=== PATIENT | male | born 1950 | race Caucasian/White ===

== ENCOUNTER 2021-08-04 09:57 | Emergency (ER) | payer MEDICARE, MEDICAID, SELFPAY ==
[2021-08-04] VITALS (15 sets, daily range): BP systolic 146–206; BP diastolic 73–99; PULSE 61–75; RESP 28–37; TEMP 36.3; O2SAT 93–100; BMI 23.6
--- NOTE | 2021-08-04 10:19 | DI.RAD.S_ITS ---
PROCEDURE: XR CHEST 1V INDICATIONS: shortness of breath TECHNIQUE: One view of the chest was acquired. COMPARISON: None. FINDINGS: Surgical changes and devices: None. Lungs and pleura: Mild pulmonary vascular congestion is seen. There is suggestion of pulmonary edema. Increased airspace opacities in bilateral infrahilar region are seen suggestive of bilateral infiltrate/atelectasis. Trace left pleural effusion is also present. No gross pneumothorax. Mediastinum: Mediastinal contours appear normal. Heart size is mildly enlarged Bones and chest wall: No suspicious bony lesions. Overlying soft tissues appear unremarkable. IMPRESSION: Congestive changes and pulmonary edema. Suggestion of small to moderate bilateral lower lobe infiltrate/atelectasis. Trace left pleural effusion. No gross pneumothorax. Dictated by: Michael Villanueva M.D. on 08/04/2021 at 10:38 Approved by: Michael iVllanueva M.D. on 08/04/2021 at 10:39
[2021-08-04 10:44] LABS: COVID19 -Nasal RAPID Negative (Negative)
[2021-08-04 10:47] LABS: Creatine Kinase 134 U/L (55-170)
[2021-08-04 11:00] LABS: Troponin I < 0.012 ng/mL (0.01-0.034)
[2021-08-04 11:03] LABS: CKMB % Relative Index 1.4 % (1.5-5.0); Creatine Kinase MB 1.83 ng/mL (<2.37)
[2021-08-04 11:13] LABS: Add Manual Diff / Slide Review NO; Basophils Absolute Auto 0 /uL (0-100); Basophils Percent Auto 0.2 % (0-2); Eosinophils Absolute Auto 0 /uL (0-450); Eosinophils Percent Auto 0.2 % (2-4); Hematocrit 32.3 % (41-53); Hemoglobin 10.9 g/dL (13.5-17.5); Lymphocytes Absolute Auto 500 /uL (1100-4500); Lymphocytes Percent Auto 4.9 % (25-40); Mean Corpuscular HGB Conc 33.7 % (30-36); Mean Corpuscular Hemoglobin 36.8 PG (26-34); Mean Corpuscular Volume 109.4 fL (80-100); Monocytes Absolute Auto 500 /uL (0-900); Monocytes Percent Auto 4.5 % (3-14); Neutrophils Absolute Auto 9900 /uL (1500-7000); Neutrophils Percent Auto 90.2 % (50-75); Platelet Count 162 X10^3/uL (150-400); Red Blood Cell Count 2.95 X10^6/uL (4.5-5.9); Red Cell Distribution Width 18.2 % (11.6-14.8)
--- NOTE | 2021-08-04 11:14 | ED_ITS ---
HPI - SOB/Dyspnea General Chief Complaint: Shortness of Breath/Dyspnea Stated Complaint: sob, h/o CHF and COPD Time Seen by Provider: 08/04/21 10:24 Source: patient and family Mode of arrival: Family Vehicle Limitations: no limitations History of Present Illness HPI Narrative: This is a 71-year-old male comes emergency department with complaint of increasing shortness of breath over the last several days who presents with from the local inpatient rehab facility. He has had sudden onset of swelling of his lower extremities, orthopnea and a sensation of shortness of breath overnight. He states that about 2 weeks ago he was sent to [facility] in [facility] for AFib, 2 sided heart failure and had what is described as probably a cardiac catheterization and cardioversion while he was there. He was discharged home on Eliquis. He since then has been in rehab locally and had several his medications stopped recently and had worsening shortness of breath. He is on 2-3 L here in the emergency department. He states he would occasionally use oxygen at rehab but was never on oxygen normally or at night time. He denies fevers or chills. He denies any chest pain or pressure. He has shortness of breath even with sitting still, orthopnea prefers to be straight up, he noted he has increased swelling which had improved since his hospitalization recently. He denies any nausea or vomiting. He did have quite a bit of diarrhea when he was in the hospital he was on some medications he states it was like coffee water. He is unsure what that medicine was. He states he has had prior appendectomy but no other cardiac surgeries or history. Patient states he does have a 40 pack year of smoking unsure if he has any COPD but he does not normally use inhalers. Occasional alcohol but nothing r egularly. No illicit. He lives on [facility]. His primary care is Dr. Zaldivar. Related Data Previous Rx's Medication Instructions Recorded furosemide 40 mg tablet (Lasix) 40 mg PO DAILY #5 tab 08/04/21 Allergies Allergy/AdvReac Type Severity Reaction Status Date / Time No Known Drug Allergies Allergy Verified 08/04/21 11:43 Review of Systems Review of Systems ROS Unobtainable: All systems reviewed & are unremarkable except as noted in HPI and below Patient History Social History Smoking Status: Former smoker Smoking Status: Former smoker tobacco type: cigarettes alcohol intake frequency: holidays/special occasions only Substance Use Type: does not use Exam Narrative Exam Narrative: GEN: Elderly appearing male, alert and oriented x 3, patient appears to be in [id number] distress. HEENT: Atraumatic, pupils are equal round reactive to light, extraocular moveme nts are intact, nares are clear, nasal cannula in place. HEART: Regular rate and rhythm without murmur, clicks, rubs. Positive for JVD. Bilateral 2+ lower extremity edema. LUNGS:Lungs clear to auscultation, no wheezes, rales, crackles, chest moves symmetrically, slightly decreased at bases. Mild tachypnea. No accessory muscle use. Some pursed lip breathing. Patient speaks in 4 issue word sen tences. Patient sitting straight up in bed and for 1st even leaning forward a little. ABD:bowel sounds normal, soft, non-tender, no guarding, rebound, rigidity, no masses noted, no hepatosplenomegaly :No CVA tenderness MSCL: Non-tender, no muscle atrophy, muscles strength 5/5 upper and lower extr emities, full range of motion, normal gait NEURO:CN 2-12 intact, sensation normal SKIN: Initial Vital Signs Initial Vital Signs: Vital Signs Pulse Rate 68 08/04/21 10:15 Respiratory Rate 35 H 08/04/21 10:15 Blood Pressure 198/84 H 08/04/21 10:15 Pulse Oximetry 96 08/04/21 10:15 Course Orders Ordered: ED Orders 08/04/21 10:50 Complete Blood Count AUTO DIFF Stat Comprehensive Metabolic Panel Stat Lactate (Lactic Acid) Stat Discontinued Medications Furosemide (Furosemide 40 Mg/4 Ml Vial) 40 mg IV NOW ONE Stop: 08/04/21 11:16 Last Admin: 08/04/21 11:44 Dose: 40 mg Documented by: KARL Reevaluation(s) Reevaluation #1: Recheck after Lasix and re-evaluation patient is feeling improved. O2 is 99% plan to wean down oxygen. Discussed with patient suspect CHF exacerbation. He feels comfortable returning to facility is starting to feel much better after diuresing. He has had 300 mL out so far. Time: 13:15 Consultations Consultation #1: Spoke with the provider at [facility] [employer] that takes care of Mr. Arthur. Ciro takes, feels comfortable with the patient returning discussed that he may still require oxygen today he is diuresing and is feeling improved we have been weaning down. He states patient has been on oral vanco for possible C diff had negative DNA but positive toxin or vice versa. That they had recently stopped his diuretic that he has known chronic diastolic heart failure. That he was not swollen or having any changes significantly is normally ambulatory without pulse ox. This coincides with patient's reported history as well. They are comfortable with patient returning with prescription for Lasix for several days and re-evaluating if this needs to be continued. Time: 13:42 Vital Signs Vital signs: Vital Signs - 8 hr 08/04/21 12:00 08/04/21 12:01 08/04/21 12:30 Pulse Rate 65 65 68 Respiratory Rate 32 H 33 H 36 H Blood Pressure 206/92 H Pulse Oximetry 97 97 98 08/04/21 12:59 08/04/21 13:00 08/04/21 13:01 Pulse Rate 61 62 62 Respiratory Rate 29 H 34 H 32 H Blood Pressure 146/92 H 162/73 H Pulse Oximetry 100 93 94 08/04/21 13:30 08/04/21 14:00 Pulse Rate 65 63 Respiratory Rate 28 H 31 H Blood Pressure 188/85 H 166/80 H Pulse Oximetry 98 96 MDM - SOB/Dyspnea Lab Data Result diagrams: 08/04/21 10:50 08/04/21 10:50 Labs: Lab Results 08/04/21 08/04/21 08/04/21 Range/Units 10:24 10:25 10:50 WBC 11.0 (4.5-11.0) X10^3/uL RBC 2.95 L (4.5-5.9) X10^6/uL Hgb 10.9 L (13.5-17.5) g/dL Hct 32.3 L (41-53) % MCV 109.4 H (80-100) fL MCH 36.8 H (26-34) PG MCHC 33.7 (30-36) % RDW 18.2 H (11.6-14.8) % Plt Count 162 (150-400) X10^3/uL Neut % (Auto) 90.2 H (50-75) % Lymph % (Auto) 4.9 L (25-40) % [place] % (Auto) 4.5 (3-14) % Eos % (Auto) 0.2 L (2-4) % Baso % (Auto) 0.2 (0-2) % Neut # (Auto) 9900 H (6003-6730) /uL Lymph # (Auto) 500 L (6805-3605) /uL [place] # (Auto) 500 (0-900) /uL Eos # (Auto) 0 (0-450) /uL Baso # (Auto) 0 (0-100) /uL Sodium (137-145) mmol/L Potassium (3.4-5.1) mmol/L Chloride (98-107) mmol/L Carbon Dioxide (22-32) mmol/L BUN (9-20) mg/dL Creatinine (0.66-1.25) mg/dL Estimated GFR (>60) mL/min BUN/Creatinine Ratio (6-22) Glucose (80-110) mg/dL Lactate (0.7-2.1) mmol/L Calcium (8.4-10.2) mg/dL Total Bilirubin (0.2-1.3) mg/dL AST (17-59) IU/L ALT (<50) IU/L Alkaline Phosphatase (38-126) U/L Total Creatine Kinase 134 (55-170) U/L CK-MB (CK-2) 1.83 (<2.37) ng/mL CK-MB (CK-2) Rel Index 1.4 L (1.5-5.0) % Troponin I < 0.012 (0.01-0.034) ng/mL NT-Pro-B Natriuret Pep 94036 H (<125) pg/mL Total Protein (6.3-8.2) g/dL Albumin (3.5-5.0) g/dL Globulin (1.7-4.1) g/dL Albumin/Globulin Ratio (1.0-2.8) SARS-CoV-2 (PCR) Negative (Negative) 08/04/21 08/04/21 Range/Units 10:50 10:50 WBC (4.5-11.0) X10^3/uL RBC (4.5-5.9) X10^6/uL Hgb (13.5-17.5) g/dL Hct (41-53) % MCV (80-100) fL MCH (26-34) PG MCHC (30-36) % RDW (11.6-14.8) % Plt Count (150-400) X10^3/uL Neut % (Auto) (50-75) % Lymph % (Auto) (25-40) % [place] % (Auto) (3-14) % Eos % (Auto) (2-4) % Baso % (Auto) (0-2) % Neut # (Auto) (3658-6534) /uL Lymph # (Auto) (0985-2885) /uL [place] # (Auto) (0-900) /uL Eos # (Auto) (0-450) /uL Baso # (Auto) (0-100) /uL Sodium 146 H (137-145) mmol/L Potassium 4.5 (3.4-5.1) mmol/L Chloride 113 H (98-107) mmol/L Carbon Dioxide 26 (22-32) mmol/L BUN 16 (9-20) mg/dL Creatinine 0.94 (0.66-1.25) mg/dL Estimated GFR > 60 (>60) mL/min BUN/Creatinine Ratio 17.0 (6-22) Glucose 148 H (80-110) mg/dL Lactate 1.9 (0.7-2.1) mmol/L Calcium 9.0 (8.4-10.2) mg/dL Total Bilirubin 0.6 (0.2-1.3) mg/dL AST 52 (17-59) IU/L ALT 103 H (<50) IU/L Alkaline Phosphatase 115 (38-126) U/L Total Creatine Kinase (55-170) U/L CK-MB (CK-2) (<2.37) ng/mL CK-MB (CK-2) Rel Index (1.5-5.0) % Troponin I (0.01-0.034) ng/mL NT-Pro-B Natriuret Pep (<125) pg/mL Total Protein 6.9 (6.3-8.2) g/dL Albumin 4.1 (3.5-5.0) g/dL Globulin 2.8 (1.7-4.1) g/dL Albumin/Globulin Ratio 1.5 (1.0-2.8) SARS-CoV-2 (PCR) (Negative) Imaging Data Chest x-ray: Radiologist's Impression: [address] [address] XRay Report Signed Patient: Reji Arthur MR#: [id number] : 1950 Acct:[id number] Age/Sex: 71 / M Date of Service: 08/04/21 Loc: ED Accession Number: [id number] ?? Procedure: XR chest 1V Ordering Provider: Charleen Flaherty D.O. PROCEDURE:? XR CHEST 1V ? INDICATIONS:? shortness of breath ? TECHNIQUE:? One view of the chest was acquired.? ? COMPARISON:? None. ? FINDINGS:? ? Surgical changes and devices:? None.? ? Lungs and pleura:? Mild pulmonary vascular congestion is seen.? There is suggestion of pulmonary edema.? Increased airspace opacities in bilateral infrahilar region are seen suggestive of bilateral infiltrate/atelectasis.? Trace left pleural effusion is also present.? No gross pneumothorax. ? Mediastinum:? Mediastinal contours appear normal.? Heart size is mildly enlarged ? Bones and chest wall:? No suspicious bony lesions.? Overlying soft tissues appear unremarkable.? ? IMPRESSION:? Congestive changes and pulmonary edema.? Suggestion of small to moderate bilateral lower lobe infiltrate/atelectasis.? Trace left pleural effusion.? No gross pneumothorax. ? ? Dictated by: Michael Villanueva M.D. on 08/04/2021 at 10:38 ? ? Approved by: Michael Villanueva M.D. on 08/04/2021 at 10:39?? ECG Data Attestation: I personally reviewed and interpreted this ECG as follows: Prior ECG tracings: available for review Interpretation: Sinus rhythm premature atrial complexes. Left ventricular hypertrophy. Prolonged QT. Q-wave in lead 3 RSR in 2 and AVF. No priors available for comparison. MDM Narrative Medical decision making narrative: This is a 71-year-old male comes emergency department with what appears to be CHF exacerbation. Patient has known COPD but on exam his consistent much more with fluid overload. He was recently hospitalized least within the last weeks for CHF and has ?likely a cardioversion he is anticoagulated. Had some medications. He is unsure but these may have been his diuretics. Patient was given Lasix, renal function is normal, [place] [address]. X-ray is consistent with CHF. Patient was requiring new 2 L nasal cannula. Patient is feeling much improved on repeat check. He is at [facility], he is not normally on oxygen but after talking to his provider they feel comfortable with him returning can continue to wean down his oxygen which we have been doing continue Lasix and will re-evaluate when he has stopped this most recent dose. Discharge Plan Departure Patient Disposition: Home Clinical Impression: CHF exacerbation Instructions: DI for Heart Failure Activity Restrictions/Additional Instructions: Follow-up with your caregiver at your facility. I did speak with them today. Continue regular medications as prescribed Continue Lasix for the next 5 days. You may need this medication on a daily basis in the future. Prescription included in discharge paperwork. Please return for worsening shortness of breath, increasing swelling of extremities, lightheadedness or passing out, increasing oxygen requirements, persistent vomiting or other new or concerning symptoms. Prescriptions: New furosemide [Lasix] 40 mg tablet 40 mg PO DAILY Qty: 5 0RF Referrals: Daron Ulloa MD [Primary Care Provider] -
[2021-08-04 11:15] LABS: Lactate (Lactic Acid) 1.9 mmol/L (0.7-2.1)
[2021-08-04 11:16] LABS: Alanine Aminotransferase 103 IU/L (<50); Albumin 4.1 g/dL (3.5-5.0); Albumin Globulin Ratio 1.5 (1.0-2.8); Alkaline Phosphatase 115 U/L (38-126); Aspartate Aminotransferase 52 IU/L (17-59); Bilirubin Total 0.6 mg/dL (0.2-1.3); Blood Urea Nitrogen 16 mg/dL (9-20); Carbon Dioxide 26 mmol/L (22-32); Chloride 113 mmol/L (98-107); Estimated Glomerular Filt Rate > 60 mL/min (>60); Globulin 2.8 g/dL (1.7-4.1); Glucose 148 mg/dL (80-110); HEMOLYSIS < 15 (0-50); Potassium 4.5 mmol/L (3.4-5.1); Sodium 146 mmol/L (137-145); Total Protein 6.9 g/dL (6.3-8.2)
[2021-08-04] MEDS: FUROSEMIDE 40 MG/4 ML VIAL IV (11:44)
[2021-08-04 12:16] LABS: NT-proBNP (BNP-Adult 18+) 13000 pg/mL (<125)
== END 2021-08-04 15:40 | disposition home or self-care (01) ==
PROVIDERS: Emergency Provider Emergency Medicine; PCP Orthopaedic Surgery
DX: I50.9 Heart failure, unspecified (principal); R94.31 Abnormal electrocardiogram [ECG] [EKG]; Z20.822 Contact with and (suspected) exposure to COVID-19
CPT/HCPCS: 36415; 71045; 80053; 82550; 82553; 83605; 83880; 84484; 85025; 87635; 93005; 96374; 99285; C9803; J1940

== ENCOUNTER → 2022-09-25 07:10 | Outpatient (ROUT) | payer MEDICARE, MEDICAID, SELFPAY ==
[2022-09-25 08:31] LABS: Alanine Aminotransferase 12 IU/L (<50); Albumin 3.7 g/dL (3.5-5.0); Albumin Globulin Ratio 1.4 (1.0-2.8); Alkaline Phosphatase 117 U/L (38-126); Aspartate Aminotransferase 16 IU/L (17-59); BUN Creatinine Ratio 18.2 (6-22); Bilirubin Total 0.4 mg/dL (0.2-1.3); Blood Urea Nitrogen 18 mg/dL (9-20); Calcium 8.9 mg/dL (8.4-10.2); Carbon Dioxide 27 mmol/L (22-32); Chloride 107 mmol/L (98-107); Cholesterol 155 mg/dL (140-199); Estimated Glomerular Filt Rate > 60 mL/min (>60); Globulin 2.7 g/dL (1.7-4.1); Glucose 89 mg/dL (80-110); HDL Cholesterol 49 mg/dL (40-60); HEMOLYSIS < 15 (0-50); LDL Cholesterol Calculated 89 mg/dL (<100); Potassium 4.4 mmol/L (3.4-5.1); Sodium 140 mmol/L (137-145); Total Protein 6.4 g/dL (6.3-8.2); Triglycerides 85 mg/dL (35-150)
== END ==
PROVIDERS: PCP Orthopaedic Surgery; Visit Provider Nurse Practitioner
DX: I50.22 Chronic systolic (congestive) heart failure (principal); I25.10 Atherosclerotic heart disease of native coronary artery without angina pectoris; E78.5 Hyperlipidemia, unspecified
CPT/HCPCS: 36415; 80053; 80061

== ENCOUNTER 2022-10-11 14:15 | Outpatient (RCR) | payer MEDICARE, MEDICAID, SELFPAY | END 2022-10-11 16:15 | LOC: CAR 14:15 | PROVIDERS: PCP Orthopaedic Surgery; Referring Provider Internal Medicine Cardiovascular Disease; Visit Provider Internal Medicine Cardiovascular Disease | DX: I21.4 Non-ST elevation (NSTEMI) myocardial infarction (principal); I25.10 Atherosclerotic heart disease of native coronary artery without angina pectoris; I50.21 Acute systolic (congestive) heart failure; I50.22 Chronic systolic (congestive) heart failure; I34.0 Nonrheumatic mitral (valve) insufficiency; I42.9 Cardiomyopathy, unspecified; I48.3 Typical atrial flutter | CPT/HCPCS: 93798 ==

== ENCOUNTER → 2023-10-01 07:19 | Outpatient (ROUT) | payer MEDICARE, MEDICAID, SELFPAY ==
[2023-10-01 07:29] LABS: Hematocrit 38.3 % (41-53); Hemoglobin 13.3 g/dL (13.5-17.5); Mean Corpuscular HGB Conc 34.6 % (30-36); Mean Corpuscular Volume 98.1 fL (80-100); Platelet Count 106 X10^3/uL (150-400); Red Cell Distribution Width 14.6 % (11.6-14.8); White Blood Cell Count 4.9 X10^3/uL (4.5-11.0)
[2023-10-01 07:47] LABS: Alanine Aminotransferase 9 IU/L (<50); Albumin 3.7 g/dL (3.5-5.0); Albumin Globulin Ratio 1.4 (1.0-2.8); Alkaline Phosphatase 95 U/L (38-126); Aspartate Aminotransferase 16 IU/L (17-59); BUN Creatinine Ratio 20.4 (6-22); Bilirubin Total 0.4 mg/dL (0.2-1.3); Blood Urea Nitrogen 21 mg/dL (9-20); Calcium 8.5 mg/dL (8.4-10.2); Carbon Dioxide 24 mmol/L (22-32); Chloride 109 mmol/L (98-107); Cholesterol 134 mg/dL (140-199); Estimated Glomerular Filt Rate > 60 mL/min (>60); Globulin 2.7 g/dL (1.7-4.1); Glucose 91 mg/dL (80-110); HDL Cholesterol 47 mg/dL (40-60); HEMOLYSIS < 15 (0-50); LDL Cholesterol Calculated 68 mg/dL (<100); Potassium 4.8 mmol/L (3.4-5.1); Sodium 139 mmol/L (137-145); Total Protein 6.4 g/dL (6.3-8.2); Triglycerides 93 mg/dL (35-150)
[2023-10-01 08:53] LABS: Folate > 20.0 ng/mL (2.76-20.0); Vitamin B12 357 pg/mL (239-931)
== END ==
PROVIDERS: PCP Orthopaedic Surgery; Visit Provider Internal Medicine
DX: E78.00 Pure hypercholesterolemia, unspecified (principal); D64.9 Anemia, unspecified
CPT/HCPCS: 36415; 80053; 80061; 82607; 82746; 85027

== ENCOUNTER → 2024-03-03 15:21 | Outpatient (CLI) | payer MEDICAID, MEDICARE, SELFPAY ==
--- NOTE | 2024-03-03 | DI.RAD.S_ITS ---
PROCEDURE: XR RIBS BI 3V INDICATIONS: RIB PAIN TECHNIQUE: 2 views of the ribs were acquired. COMPARISON: None. FINDINGS: Surgical changes and devices: None. Bones and chest wall: No fractures or dislocations. No suspicious bony lesions. Overlying soft tissues appear unremarkable. Lungs and pleura: The visualized lung appears clear. No pleural effusions or pneumothorax are visible. IMPRESSION: No displaced rib fracture. Dictated by: Lisandro Iglesias M.D. on 03/03/2024 at 16:14 Approved by: Lisandro Iglesias M.D. on 03/03/2024 at 16:15
== END ==
PROVIDERS: PCP Orthopaedic Surgery; Referring Provider Internal Medicine; Visit Provider Internal Medicine
DX: R07.82 Intercostal pain (principal)
CPT/HCPCS: 71110

== ENCOUNTER 2024-03-03 16:02 | Emergency (ER) | payer MEDICAID, MEDICARE, SELFPAY ==
[2024-03-03] VITALS (16 sets, daily range): BP systolic 102–149; BP diastolic 53–67; PULSE 57–64; RESP 23–25; O2SAT 92–99; BMI 24.6
--- NOTE | 2024-03-03 16:07 | DI.RAD.S_ITS ---
PROCEDURE: XR CHEST 1V INDICATIONS: syncope TECHNIQUE: One view of the chest was acquired. COMPARISON: [facility], [facility], XR CHEST 1V, 08/04/2021, 10:23. FINDINGS: Surgical changes and devices: Coronary stents. Lungs and pleura: Lungs are clear. No pleural effusions or pneumothorax. Mediastinum: Mediastinal contours appear normal. Heart size is normal. Bones and chest wall: No suspicious bony lesions. Overlying soft tissues appear unremarkable. IMPRESSION: No acute cardiopulmonary abnormality is seen. Dictated by: Lisandro Iglesias M.D. on 03/03/2024 at 16:39 Approved by: Lisandro Iglesias M.D. on 03/03/2024 at 16:40
[2024-03-03] MEDS: SODIUM CHLORIDE 0.9% 1,000 ML 500 ML IV (16:20)
--- NOTE | 2024-03-03 16:20 | ED.NEUROSD ---
HPI - Neuro Symptoms/Deficit General Chief Complaint: Syncope Stated Complaint: syncope/Hypotensive Time Seen by Provider: 03/03/24 16:07 Source: patient and other Mode of arrival: other History of Present Illness HPI Narrative: 73-year-old male history of atrial fibrillation on Eliquis, congestive heart failure who was being seen through GI for a chest x-ray for chest that has been present for the past 2-3 weeks. Patient was standing for a period of time had to have several episodes attempt with holding his breath and developed lightheadedness and near syncopal episode. Patient was seen by myself over MDI he was diaphoretic, was not conversant but states he could hear people talking. He has since improved. States he has had chest pain for several weeks that has been almost constant. Nothing seems to make it better or worse except when he coughs or sneezes. Patient denies any syncope other than today recently. He has had syncopal episodes in the past and describes getting orthostatic when he gets up quickly. Denies any fevers or chills, no cold cough or congestion. No shortness of breath. He denies any nausea or vomiting today. No loss of bowel or bladder control. No seizure-like activity witnessed in the department. Patient had any new swelling in extremities. He notes he does take anticoagulants daily believes it is Eliquis. He is unsure of all of his home medications but states he takes a lot. Patient does not have any known drug allergies. Does use tobacco daily, occasional alcohol, no recreational drugs. On Anticoagulants: Yes Related Data Previous Rx's Medication Instructions Recorded furosemide 40 mg tablet (Lasix) 40 mg PO DAILY #5 tabs 08/04/21 tramadol 50 mg tablet 50 mg PO Q6H PRN pain #20 tabs 03/03/24 Allergies Allergy/AdvReac Type Severity Reaction Status Date / Time No Known Drug Allergies Allergy Verified 08/04/21 11:43 Review of Systems Review of Systems ROS Unobtainable: All systems reviewed & are unremarkable except as noted in HPI and below Hematologic/Lymphatic On Anticoagulants: Yes Patient History Social History Smoking Status: Current every day smoker Smoking Status: Current every day smoker tobacco type: pipe alcohol intake frequency: holidays/special occasions only Substance Use Type: does not use Exam Narrative Exam Narrative: GENERAL: Alert and oriented x three, initially diaphoretic and pale. Patient's color has significantly improved after being laid flat and moved to room. Diaphoresis has resolved. HEENT: Head normocephalic, atraumatic, EOMI, pupils reactive, face symmetric, moist mucous membranes NECK: Supple, full range of motion CARDIOVASCULAR: Bradycardic but regular rate and rhythm without murmurs, rubs or gallops. RESPIRATORY: Breath sounds equal bilaterally, no wheezes rales or rhonchi. ABDOMEN: Soft, nontender. Normoactive bowel sounds all 4 quadrants. No guarding or rebound, rigidity, no mass, no pulsatile mass or bruit : No CVA tenderness EXTREMITIES: Normal range of motion, no clubbing or edema. Neurovascularly intact NEUROLOGICAL: Cranial nerves II through XII grossly intact. Moving all extremities SKIN: Warm, dry, no petechiae, no rashes or lesions. Initial Vital Signs Initial Vital Signs: Vital Signs Pulse Rate 57 L 03/03/24 16:02 Respiratory Rate 24 03/03/24 16:02 Blood Pressure 149/67 H 03/03/24 16:02 Pulse Oximetry 97 03/03/24 16:02 Oxygen Delivery Method Room Air 03/03/24 16:02 Course Orders Ordered: ED Orders 03/03/24 16:07 XR chest 1V Stat EKG-12 Lead Stat 03/03/24 16:16 Complete Blood Count AUTO DIFF Stat Comprehensive Metabolic Panel Stat Lipase Stat NT-proBNP (BNP-Adult 18+) Stat Troponin & CK Cardiac Panel Stat 03/03/24 18:14 CT angio chest PE protocol Stat 03/03/24 18:20 EKG-12 Lead Stat Discontinued Medications Aspirin (Aspirin 81 Mg Chew Tab) 324 mg PO NOW ONE Stop: 03/03/24 16:08 Last Admin: 03/03/24 16:17 Dose: Not Given Documented By: JILL Sodium Chloride (Normal Saline 0.9%) 1,000 mls @ 500 mls/hr IV BOLUS ONE Stop: 03/03/24 18:06 Last Infusion: 03/03/24 18:27 Dose: Infused Documented By: Admin: 03/03/24 16:20 Dose: 500 mls/hr Documented By: JILL Tramadol HCl (Tramadol 50 Mg Tablet) 50 mg PO NOW ONE Stop: 03/03/24 19:14 Last Admin: 03/03/24 19:18 Dose: 50 mg Vital Signs Vital signs: Vital Signs - 8 hr 03/03/24 16:02 03/03/24 16:21 03/03/24 16:22 Pulse Rate 57 L 59 L Respiratory Rate 24 Blood Pressure 149/67 H Pulse Oximetry 97 92 96 Oxygen Delivery Method Room Air 03/03/24 16:22 03/03/24 16:30 03/03/24 16:30 Pulse Rate 60 Respiratory Rate Blood Pressure 105/53 L 102/55 L Pulse Oximetry 94 Oxygen Delivery Method 03/03/24 16:40 03/03/24 16:40 03/03/24 16:50 Pulse Rate 59 L 59 L Respiratory Rate 25 H 23 Blood Pressure 109/56 L Pulse Oximetry 94 93 Oxygen Delivery Method 03/03/24 16:50 03/03/24 17:00 03/03/24 17:00 Pulse Rate 64 Respiratory Rate 23 Blood Pressure 106/54 L 119/56 L Pulse Oximetry 97 Oxygen Delivery Method 03/03/24 17:10 03/03/24 17:10 03/03/24 17:20 Pulse Rate 62 61 Respiratory Rate Blood Pressure 117/56 L Pulse Oximetry 96 95 Oxygen Delivery Method 03/03/24 17:20 03/03/24 17:30 03/03/24 17:30 Pulse Rate 61 Respiratory Rate Blood Pressure 113/54 L 111/54 L Pulse Oximetry 96 Oxygen Delivery Method 03/03/24 17:40 03/03/24 17:40 03/03/24 17:50 Pulse Rate 61 62 Respiratory Rate 23 24 Blood Pressure 118/57 L Pulse Oximetry 96 96 Oxygen Delivery Method Room Air 03/03/24 17:50 03/03/24 18:00 03/03/24 18:00 Pulse Rate 62 Respiratory Rate 25 H Blood Pressure 119/58 L 119/58 L Pulse Oximetry 96 Oxygen Delivery Method 03/03/24 18:10 03/03/24 18:10 03/03/24 18:30 Pulse Rate 63 62 Respiratory Rate 23 Blood Pressure 137/62 Pulse Oximetry 97 99 Oxygen Delivery Method Room Air 03/03/24 19:00 Pulse Rate 62 Respiratory Rate 23 Blood Pressure 147/67 H Pulse Oximetry 97 Oxygen Delivery Method MDM - Neuro Symptoms/Deficit Lab Data 03/03/24 16:16 03/03/24 16:16 Labs: Lab Results 03/03/24 Range/Units 16:16 WBC 6.6 (4.5-11.0) X10^3/uL RBC 3.66 L (4.5-5.9) X10^6/uL Hgb 11.7 L (13.5-17.5) g/dL Hct 35.6 L (41-53) % MCV 97.2 (80-100) fL MCH 32.0 (26-34) PG MCHC 33.0 (30-36) % RDW 15.4 H (11.6-14.8) % Plt Count 130 L (150-400) X10^3/uL Neut % (Auto) 69.2 (50-75) % Lymph % (Auto) 20.7 L (25-40) % Meigs % (Auto) 8.1 (3-14) % Eos % (Auto) 1.5 L (2-4) % Baso % (Auto) 0.5 (0-2) % Neut # (Auto) 4500 (1424-9695) /uL Lymph # (Auto) 1400 (5960-0403) /uL [place] # (Auto) 500 (0-900) /uL Eos # (Auto) 100 (0-450) /uL Baso # (Auto) 0 (0-100) /uL Sodium 136 L (137-145) mmol/L Potassium 3.8 (3.4-5.1) mmol/L Chloride 106 (98-107) mmol/L Carbon Dioxide 21 L (22-32) mmol/L BUN 22 H (9-20) mg/dL Creatinine 0.96 (0.66-1.25) mg/dL Estimated GFR > 60 (>60) mL/min BUN/Creatinine Ratio 22.9 H (6-22) Glucose 138 H (80-110) mg/dL Calcium 8.7 (8.4-10.2) mg/dL Total Bilirubin 0.5 (0.2-1.3) mg/dL AST 21 (17-59) IU/L ALT 13 (<50) IU/L Alkaline Phosphatase 481 H (38-126) U/L Total Creatine Kinase 53 L (55-170) U/L Troponin I 0.015 (0.01-0.034) ng/mL NT-Pro-B Natriuret Pep 1390 H (<125) pg/mL Total Protein 7.1 (6.3-8.2) g/dL Albumin 4.0 (3.5-5.0) g/dL Globulin 3.1 (1.7-4.1) g/dL Albumin/Globulin Ratio 1.3 (1.0-2.8) Lipase 22 L (23-300) U/L Point of Care Testing Glucose POC 133 Imaging Data Chest x-ray: Radiologist's Impression: Close Chest X-Ray (Signed) Lisandro Iglesias - 03/03/24 Ribs X-Ray (Signed) Lisandro Iglesias - 03/03/24 Chest X-Ray (Signed) Michael Villanueva - 08/04/21 Launch?Image [address] [address] XRay Report Signed Patient: Reji Arthur MR#: [id number] : 1950 Acct:[id number] Age/Sex: 73 / M Date of Service: 03/03/24 Loc: ED Accession Number: [id number] Procedure: XR chest 1V Ordering Provider: Charleen Flaherty D.O. PROCEDURE: XR CHEST 1V INDICATIONS: syncope TECHNIQUE: One view of the chest was acquired. COMPARISON: [facility] , XR CHEST 1V, 08/04/2021, 10:23. FINDINGS: Surgical changes and devices: Coronary stents. Lungs and pleura: Lungs are clear. No pleural effusions or pneumothorax. Mediastinum: Mediastinal contours appear normal. Heart size is normal. Bones and chest wall: No suspicious bony lesions. Overlying soft tissues appear unremarkable. IMPRESSION: No acute cardiopulmonary abnormality is seen. Dictated by: Lisandro Iglesias M.D. on 03/03/2024 at 16:39 Approved by: Lisandro Iglesias M.D. on 03/03/2024 at 16:40 ECG Data Attestation: I personally reviewed and interpreted this ECG as follows: Prior ECG tracings: available for review Interpretation: Sinus rhythm rate of 66 OR 140 QRS of 92 QTC of 486, no acute ST elevation or depression. EKG 2. Shows sinus bradycardia rate of 59, OR 144 QRS of 94 QTC of 461, this was repeated as the initial EKG did not load. Appears similar to prior 03/03/24 and 08/05/23. EKG 3. Sinus rhythm rate of 61 OR 152 QRS of 90 2q see of 455. No dynamic changes appreciated on EKG. [facility] Narrative Medical decision making narrative: Labs show white count of 6.6 hemoglobin 11.7 was 13 in September. Platelets are 130 improved from September as well. Chemistries shows sodium 136 potassium 3.8 chloride of 106, CO2 of 21, if you have meet, creatinine 0.96, glucose of 138, AST ALT are fine, alk-phos is 41, CK is 53. Troponin 0.015, BNP is 1390. Lipase is 22. Chest x-ray shows no acute change EKG showed normal sinus rhythm that is sounds like a good plan patient has some mild ST changes in lateral leads but this is on priors including from February 2024 in July 2021. Patient but looks much improved even after just lying down. He received fluids continues to feel improved. He has had chronic chest pain for the past several weeks no other exacerbating factors that he is describing. With troponin of 0.015 with persistent constant chest pain do not think he has having a angina or myocardial infarction. Patient describes pain for several weeks but is worse with cough, he did have a near syncopal episode was little bit hypotensive so we will obtain CT angio of the chest. This shows shows no PE, no right heart strain, some dependent atelectasis but no focal consolidation emphysematous changes. Patient has diffusely scattered mixed lytic and sclerotic osseous lesions throughout the skeleton suspicious for osseous metastases. No suspicious pulmonary nodes or mediastinal lymphadenopathy. Low attenuating lesions in the bilateral adrenal gland measuring 3.2 cm and 1.6 on the left. Patient has ambulated without issue here in the department. He was feeling much improved. Discussed these findings with the patient. He states this fits as his pain feels like it is more in his ribs and not deep inside his chest. Reviewed findings are concerning for malignancy and metastatic lesions but no clear source is found on his imaging. Plan for patient to follow up outpatient to evaluate for primary source. Patient does have a primary care but is interested in having someone more local so we will give contact. He notes he has been having some difficulty with sleeping secondary to the pain and discomfort so we will do a short course of pain medication. All questions answered. Discharge Plan Departure Patient Disposition: Home Clinical Impression: Syncope, Metastasis to bone Activity Restrictions/Additional Instructions: Your workup today shows multiple sclerotic and lytic lesions throughout the skeleton and ribs are consistent with metastases. No clear source is found but you do need to follow up with primary care to evaluate for malignancy or cancer. These spots can cause pain, you can take acetaminophen up to a 1000 mg every 6 hours as needed for pain and/or ibuprofen. If inadequate for pain you can take tramadol 1-2 tablets every 6 hours as needed. This medication can make you sleepy do not drive, perform hazardous activities or make any major decisions while taking it. This medication will make you constipated please take a stool softener once to twice daily until stools are soft and regular. Prescription sent to [facility] in [place]. Please return for fevers, recurrent syncopal episodes or lightheadedness, worsening pain, new shortness of breath, persistent vomiting, coughing up blood, new swelling in extremities other new or concerning changes. Prescriptions: New tramadol 50 mg tablet 50 mg PO Q6H PRN (Reason: pain) Qty: 20 0RF No Action furosemide [Lasix] 40 mg tablet 40 mg PO DAILY Qty: 5 0RF Referrals: Daron Ulloa MD [Primary Care Provider] - Stand Alone Forms: Patient Portal/API/Survey
[2024-03-03 16:25] LABS: Add Manual Diff / Slide Review NO; Basophils Absolute Auto 0 /uL (0-100); Basophils Percent Auto 0.5 % (0-2); Eosinophils Absolute Auto 100 /uL (0-450); Eosinophils Percent Auto 1.5 % (2-4); Hematocrit 35.6 % (41-53); Hemoglobin 11.7 g/dL (13.5-17.5); Lymphocytes Absolute Auto 1400 /uL (1100-4500); Lymphocytes Percent Auto 20.7 % (25-40); Mean Corpuscular Volume 97.2 fL (80-100); Monocytes Absolute Auto 500 /uL (0-900); Monocytes Percent Auto 8.1 % (3-14); Neutrophils Absolute Auto 4500 /uL (1500-7000); Neutrophils Percent Auto 69.2 % (50-75); Platelet Count 130 X10^3/uL (150-400); Red Blood Cell Count 3.66 X10^6/uL (4.5-5.9); Red Cell Distribution Width 15.4 % (11.6-14.8); White Blood Cell Count 6.6 X10^3/uL (4.5-11.0)
[2024-03-03 16:35] LABS: Alanine Aminotransferase 13 IU/L (<50); Albumin Globulin Ratio 1.3 (1.0-2.8); Alkaline Phosphatase 481 U/L (38-126); Aspartate Aminotransferase 21 IU/L (17-59); BUN Creatinine Ratio 22.9 (6-22); Bilirubin Total 0.5 mg/dL (0.2-1.3); Blood Urea Nitrogen 22 mg/dL (9-20); Calcium 8.7 mg/dL (8.4-10.2); Carbon Dioxide 21 mmol/L (22-32); Chloride 106 mmol/L (98-107); Creatine Kinase 53 U/L (55-170); Estimated Glomerular Filt Rate > 60 mL/min (>60); Globulin 3.1 g/dL (1.7-4.1); Glucose 138 mg/dL (80-110); HEMOLYSIS < 15 (0-50); Lipase 22 U/L (23-300); Potassium 3.8 mmol/L (3.4-5.1); Sodium 136 mmol/L (137-145); Total Protein 7.1 g/dL (6.3-8.2)
[2024-03-03 16:47] LABS: NT-proBNP (BNP-Adult 18+) 1390 pg/mL (<125); Troponin I 0.015 ng/mL (0.01-0.034)
--- NOTE | 2024-03-03 16:56 | EKG_ITS ---
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
--- NOTE | 2024-03-03 18:11 | EKG_ITS ---
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
--- NOTE | 2024-03-03 18:14 | DI.CT.S_ITS ---
PROCEDURE: CT ANGIO CHEST PE PROTOCOL INDICATIONS: chest pain x 3 weeks, syncope TECHNIQUE: After the administration of intravenous contrast, 2 mm thick sections acquired from the pulmonary apices to the posterior costophrenic angles. 3-dimensional maximum intensity projection (MIP) coronal and sagittal reformats were then acquired through the thorax. For radiation dose reduction, the following was used: automated exposure control, adjustment of mA and/or kV according to patient size. COMPARISON: [facility], CR, XR CHEST 1V, 03/03/2024, 16:08. [facility], CR, XR RIBS BI 3V, 03/03/2024, 15:47. FINDINGS: Image quality: Diagnostic. Pulmonary arteries: Pulmonary arteries are normal in size, and demonstrate no intraluminal filling defects to suggest central pulmonary embolism. Lower Neck: No enlarged lymph nodes. Thyroid: No thyroid nodules which require sonographic follow up, per consensus guidelines. Axillae: No enlarged lymph nodes. Chest Wall: Unremarkable. Bones: Diffusely scattered mixed sclerotic and lytic lesions seen throughout the imaged skeleton without evidence for acute compression fractures of the vertebral bodies or pathologic fractures of ribs or the upper extremity. Lungs and Pleura: No pneumothorax or pleural effusions. Moderate bibasilar atelectasis. Findings are more pronounced on the right. Upper lobe predominant pulmonary emphysematous changes. No septal thickening or nodularity. Heart: Heart size is normal. No pericardial effusion. Thoracic Vessels: No aortic aneurysm. Mediastinum and Marilyn: No enlarged lymph nodes. Esophagus: No wall thickening. Small hiatal hernia. Upper Abdomen: Punctate nonobstructing bilateral renal stones. Fluid attenuation hypodensity in the left kidney compatible with a cyst. No hydronephrosis. There is a fat attenuation 1.6 cm nodule in the left adrenal gland compatible with an adrenal adenoma. There is also a low-density right adrenal lesion measuring 3.2 x 2.5 cm. This is also a probable adrenal adenoma. IMPRESSION: No acute pulmonary embolus. No evidence for acute right-sided heart strain. Moderate right greater than left dependent atelectasis. No focal consolidation identified. Upper lobe predominant pulmonary emphysematous changes. Diffusely scattered mixed lytic and sclerotic osseous lesion seen throughout the imaged skeleton suspicious for osseous metastases. No suspicious pulmonary nodules/masses or mediastinal adenopathy. Low-attenuation lesions noted in the bilateral adrenal glands measuring up to 3.2 cm on the right and 1.6 cm on the left, likely representing adrenal adenomas. Dictated by: Lonnie Wells M.D. on 03/03/2024 at 18:51 Approved by: Lonnie Wells M.D. on 03/03/2024 at 18:59
--- NOTE | 2024-03-03 18:20 | EKG_ITS ---
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
[2024-03-03] MEDS: TRAMADOL 50 MG TABLET PO (19:18)
== END 2024-03-03 19:27 | disposition home or self-care (01) ==
PROVIDERS: Emergency Provider Emergency Medicine; PCP Orthopaedic Surgery
DX: R55 Syncope and collapse (principal); R00.1 Bradycardia, unspecified; C79.51 Secondary malignant neoplasm of bone; R07.9 Chest pain, unspecified; Z79.01 Long term (current) use of anticoagulants; R07.82 Intercostal pain
CPT/HCPCS: 71045; 71110; 71275; 80053; 82550; 82962; 83690; 83880; 84484; 85025; 93005; 96360; 96361; 99284; Q9967

== ENCOUNTER 2024-04-28 13:38 | Inpatient (IN) | payer MEDICARE, MEDICAID, SELFPAY ==
[2024-04-28] VITALS (12 sets, daily range): BP systolic 109–154; BP diastolic 56–85; PULSE 63–110; RESP 18–26; TEMP 36.4–37.1; O2SAT 89–100; BMI 24.2
--- NOTE | 2024-04-28 13:44 | ED_ITS ---
HPI - General Adult General Chief complaint: Shortness of Breath/Dyspnea Stated complaint: increased pain Time Seen by Provider: 04/28/24 13:43 History of Present Illness HPI narrative: 74-year-old gentleman with a history of atrial fibrillation on Eliquis, hypertension, hyperlipidemia, in February was incidentally found to have multiple sclerotic osseous lesions throughout his skeletal system. Oncology consultation on March 27 with with extensive skeletal lesions concerning for metastatic disease associated with loss of appetite, fatigue, weight loss additional tumors including GI pancreatic prostatic cancers are ordered, testing for plasma cell dyscrasias and a PET scan is scheduled for next week. Patient comes in today from [facility] complaining of increasing pain, cough found to be slightly hypoxic on arrival Related Data Previous Rx's Medication Instructions Recorded furosemide 40 mg tablet (Lasix) 40 mg PO DAILY #5 tabs 08/04/21 tramadol 50 mg tablet 50 mg PO Q6H PRN pain #20 tabs 03/03/24 Allergies Allergy/AdvReac Type Severity Reaction Status Date / Time No Known Drug Allergies Allergy Verified 08/04/21 11:43 Review of Systems Review of Systems Narrative: Pertinent positive and negative findings as per HPI specifically, no urinary frequency, urgency, nocturia no lower pelvic pain abdominal pain or constipation Patient History Medical History (Updated 04/28/24 @ 18:04 by Bibi Borges MD) Coronary artery disease Congestive heart failure Prostate cancer metastatic to bone Paroxysmal atrial fibrillation Social History Smoking Status: Current every day smoker Smoking Status: Current every day smoker tobacco type: pipe alcohol intake frequency: holidays/special occasions only Exam Initial Vital Signs Initial Vital Signs: Vital Signs Pulse Rate 110 H 04/28/24 13:41 Pulse Oximetry 89 L 04/28/24 13:41 General: Frail, chronically ill-appearing, alert and able to cooperate completely with exam HEENT: Moist mucous membranes, normal sclera with reactive pupils, Respiratory: Lungs with scattered wheeze, crackles in the bases, point tenderness along anterior right ribs Cardiac: Irregular, tachycardic, 2/6 murmur Abdomen: Soft, nontender, good bowel tones, no flank pain Skin: Warm and dry, no rashes Neurologic: Grossly neurologically intact with no obvious asymmetries or abnormalities Extremities: No trauma, Psych: Cooperative, appropriate insight and affect Course Orders Ordered: ED Orders 04/28/24 13:46 XR chest 1V Stat EKG-12 Lead Stat Measure peak expiratory flow ONCE RT Consult Eval and Treat NOW 04/28/24 13:50 Complete Blood Count AUTO DIFF Stat Comprehensive Metabolic Panel Stat D Dimer Stat Lactate (Lactic Acid) Stat NT-proBNP (BNP-Adult 18+) Stat Prothrombin Time INR Stat Respiratory Panel (Film Array) Stat Troponin I Stat 04/28/24 15:25 CT abdomen pelvis w con Stat CT angio chest PE protocol Stat Discontinued Medications Ketorolac Tromethamine (Ketorolac 30 Mg/Ml Vial) 15 mg IV NOW ONE Stop: 04/28/24 14:24 Last Admin: 04/28/24 14:38 Dose: 15 mg Documented By: Vital Signs Vital signs: Vital Signs - 8 hr 04/28/24 13:41 04/28/24 13:42 04/28/24 13:42 Temperature Pulse Rate 110 H 108 H Respiratory Rate Blood Pressure 139/67 Pulse Oximetry 89 L 90 L Oxygen Delivery Method Oxygen Flow Rate 04/28/24 13:43 04/28/24 14:00 04/28/24 14:00 Temperature 98.7 F Pulse Rate 98 H 103 H Respiratory Rate 20 26 H Blood Pressure 139/67 154/85 H Pulse Oximetry 89 L 97 Oxygen Delivery Method Room Air Room Air Oxygen Flow Rate 04/28/24 14:31 04/28/24 15:00 04/28/24 15:57 Temperature Pulse Rate 89 74 67 Respiratory Rate 26 H 20 23 Blood Pressure 142/60 H 129/61 127/58 L Pulse Oximetry 98 98 99 Oxygen Delivery Method Nasal Cannula Oxygen Flow Rate 2 04/28/24 16:00 04/28/24 16:00 04/28/24 16:30 Temperature Pulse Rate 65 Respiratory Rate 19 Blood Pressure 127/64 117/56 L Pulse Oximetry 98 Oxygen Delivery Method Oxygen Flow Rate 04/28/24 16:30 04/28/24 17:00 04/28/24 17:00 Temperature Pulse Rate 63 63 Respiratory Rate 18 23 Blood Pressure 109/56 L Pulse Oximetry 98 99 Oxygen Delivery Method Nasal Cannula Oxygen Flow Rate 2 Medical Decision Making Lab Data 04/28/24 13:50 04/28/24 13:50 Labs: Lab Results 04/28/24 Range/Units 13:50 WBC 3.6 L (4.5-11.0) X10^3/uL RBC 2.61 L (4.5-5.9) X10^6/uL Hgb 8.1 L (13.5-17.5) g/dL Hct 24.7 L (41-53) % MCV 94.4 (80-100) fL MCH 31.2 (26-34) PG MCHC 33.0 (30-36) % RDW 17.6 H (11.6-14.8) % Plt Count 101 L (150-400) X10^3/uL Neut % (Auto) 79.9 H (50-75) % Lymph % (Auto) 9.9 L (25-40) % Bracken % (Auto) 9.4 (3-14) % Eos % (Auto) 0.5 L (2-4) % Baso % (Auto) 0.3 (0-2) % Neut # (Auto) 2900 (2915-3171) /uL Lymph # (Auto) 400 L (8019-3545) /uL Bracken # (Auto) 300 (0-900) /uL Eos # (Auto) 0 (0-450) /uL Baso # (Auto) 0 (0-100) /uL PT 24.0 H (9.4-12.5) SECONDS INR 2.2 H (0.9-1.3) D-Dimer 1961 H (<500) ng/ml Sodium 133 L (137-145) mmol/L Potassium 4.3 (3.4-5.1) mmol/L Chloride 98 (98-107) mmol/L Carbon Dioxide 24 (22-32) mmol/L BUN 16 (9-20) mg/dL Creatinine 0.78 (0.66-1.25) mg/dL Estimated GFR > 60 (>60) mL/min BUN/Creatinine Ratio 20.5 (6-22) Glucose 125 H (80-110) mg/dL Lactate 1.6 (0.7-2.1) mmol/L Calcium 8.3 L (8.4-10.2) mg/dL Total Bilirubin 0.5 (0.2-1.3) mg/dL AST 23 (17-59) IU/L ALT 14 (<50) IU/L Alkaline Phosphatase 550 H (38-126) U/L Troponin I 0.034 (0.01-0.034) ng/mL NT-Pro-B Natriuret Pep 3060 H (<125) pg/mL Total Protein 7.0 (6.3-8.2) g/dL Albumin 3.8 (3.5-5.0) g/dL Globulin 3.2 (1.7-4.1) g/dL Albumin/Globulin Ratio 1.2 (1.0-2.8) Chlamy pneumoniae PCR Not detected (Not Detect) Adenovirus (PCR) Not detected (Not Detect) B. pertussis DNA (PCR) Not detected (Not Detect) B.parapertussis DNA PCR Not detected (Not Detecte) Coronavirus OC43 (PCR) Not detected (Not Detect) Coronavirus HKU1 (PCR) Not detected (Not Detect) Coronavirus 229E (PCR) Not detected (Not Detect) SARS-CoV-2 (PCR) Not detected (Not Detecte) Coronavirus NL63 (PCR) Not detected (Not Detect) Human Metapneumovir PCR Not detected (Not Detect) Influ A (H1N1 Seas) PCR Detected H (Not Detect) Influenza Type B (PCR) Not detected (Not Detect) M. pneumoniae (PCR) Not detected (Not Detect) Parainfluenza 1 (PCR) Not detected (Not Detect) Parainfluenza 2 (PCR) Not detected (Not Detect) Parainfluenza 3 (PCR) Not detected (Not Detect) Parainfluenza 4 (PCR) Not detected (Not Detect) RSV (PCR) Not detected (Not Detect) Entero/Rhino (PCR) Not detected (Not Detect) Imaging Data CT scan - chest: Radiologist's Impression: PROCEDURE: CT ANGIO CHEST PE PROTOCOL INDICATIONS: elevated d dimer TECHNIQUE: After the administration of intravenous contrast, 2 mm thick sections acquired from the pulmonary apices to the posterior costophrenic angles. 3-dimensional maximum intensity projection (MIP) coronal and sagittal reformats were then acquired through the thorax. For radiation dose reduction, the following was used: automated exposure control, adjustment of mA and/or kV according to patient size. COMPARISON: [facility], CT, CT ANGIO CHEST PE PROTOCOL, 03/03/2024, 18:23. FINDINGS: Image quality: Diagnostic. Pulmonary arteries: Pulmonary arteries are normal in size, and demonstrate no intraluminal filling defects to suggest central pulmonary embolism. Lower Neck: No enlarged lymph nodes. Thyroid: No thyroid nodules which require sonographic follow up, per consensus guidelines. Axillae: No enlarged lymph nodes. Chest Wall: Unremarkable. Bones: Unremarkable. Lungs and Pleura: There is small right pleural effusion and trace left pleural effusion with adjacent compressive atelectasis in posterior aspect of bilateral lung farley. Ill-defined airspace opacities are noted in anterior and lateral aspect of right lower lobe along the major fissure extending to right infrahilar region. Small atelectasis in anterior and medial aspect of left lingular segment is also seen. No pneumothorax. Heart: Heart size is enlarged. No pericardial effusion. Thoracic Vessels: No aortic aneurysm. Moderate atherosclerotic calcifications are noted in all 3 coronary arteries. Mediastinum and Marilyn: No enlarged lymph nodes. Esophagus: No wall thickening. Small hiatal hernia. Upper Abdomen: Please correlate with CT of abdomen and pelvis study from the same day. IMPRESSION: 1. No pulmonary embolus. No thoracic aortic aneurysm. 2. Cardiomegaly, no pericardial effusion. No gross mediastinal or hilar lymphadenopathy. Moderate three-vessel coronary artery atherosclerotic calcifications. Small hiatal hernia. 3. Small right pleural effusion and trace left pleural effusion with adjacent bibasilar dependent atelectasis. Small infiltrate versus atelectasis is seen in anterior and lateral aspect of right lower lobe. Small infiltrate versus atelectasis in anterior medial aspect of left lingular segment. No pneumothorax. Dictated by: Michael Villanueva M.D. on 04/28/2024 at 15:48 CT scan - abdomen/pelvis: Radiologist's Impression: PROCEDURE: CT ABDOMEN PELVIS W CON INDICATIONS: new dx metastatic prostate cancer, TECHNIQUE: After the administration of intravenous contrast, axial sections acquired from the lung bases to the pubic symphysis. Coronal and sagittal reformats were performed. For radiation dose reduction, the following was used: automated exposure control, adjustment of mA and/or kV according to patient size. COMPARISON: [facility], CT, CT ANGIO CHEST, 03/23/2024, 10:56. FINDINGS: Image quality: Diagnostic. Lower Chest: See CTA chest April 28, 2024. . ABDOMEN: Liver: No solid mass. Mild, diffuse fatty infiltration of the liver. Gallbladder: Gallbladder is distended without gallbladder wall thickening or gallstones. Biliary ducts: No biliary dilation. Pancreas: No ductal dilation. Spleen: Size is within normal limits. Adrenal Glands: 4.1 by 2.6 right adrenal mass and 3.3 x 1.9 centimeter left adrenal mass are without significant change compared to prior study. Kidneys and Ureters: No hydronephrosis bilateral nonobstructing renal stones ranging in size from 1-4 millimeters.. No solid mass. Simple left renal cyst which requires no additional imaging. No complex renal cystic lesion which requires follow up. Stomach and Bowel: Normal colonic caliber, without significant wall thickening. Moderate to large volume of stool throughout the colon and in the rectum. Circumferential wall thickening involving the distal rectum. No evidence of appendicitis. Peritoneum: No abnormal intraperitoneal fluid. No free air. Ventral Wall: No significant ventral hernia. Abdominal Nodes: No retroperitoneal or mesenteric adenopathy by size criteria. Vessels: Aorta and inferior vena cava are normal in size. Scattered atherosclerotic calcifications involving the abdominal and pelvic vasculature. PELVIS: Pelvic Organs: Unremarkable. Bladder: No bladder wall thickening, accounting for underdistention. Prostate is mildly enlarged. Pelvic Nodes: No enlarged lymph nodes. Miscellaneous: No inguinal hernias are seen. Bones: Numerous sclerotic and lesions extensive throughout the visualized bony skeleton compatible with osseous metastatic disease. IMPRESSION: Mild circumferential wall thickening involving the lower rectum which could be due to underdistention, mild nonspecific proctitis or rectal carcinoma. Recommend correlation with clinical findings. Moderate to severe colonic and proximal rectal fecal loading. Stable bilateral adrenal masses suspicious for metastatic disease. Extensive osseous metastatic disease. Bilateral nonobstructing renal stones. No hydronephrosis. Dictated by: Pauline Kwon MD, PhD on 04/28/2024 at 15:48 MDM Narrative Medical decision making narrative: CC: Increasing bony rib pain Complicating co-morbidities: Recently diagnosed metastatic disease, PSA drawn patient was unaware of results significantly elevated presumptive metastatic prostate cancer, atrial fibrillation, anticoagulated on apixaban, congestive heart failure coronary artery disease Data collected from: patient Social determinants of health that may influence the patients condition: Patient is DNR with interventions as appropriate. States he watched his mother struggle with multiple episodes of chemotherapy with multiple myeloma and he is not inclined to want to pursue that sort of treatment for his yet to be diagnosed metastatic cancer. Medical records reviewed: ER visit March 03, 2024 is reviewed. Oncology visit for his recently diagnosed bony metastases from March 27 is reviewed, see summary in HPI Most recent CT scan of the abdomen was April 28, 2022 at that time there were no bony abnormalities and no mentioned of abnormal reproductive organs and a normal bladder. Current pain medication includes 30 mg extended-release morphine 3 times a day, oxycodone 15 mg q.4 hours as needed, 1000 mg of Tylenol every 8 hours as needed 600 mg ibuprofen q.6 hours as needed patient finds the ibuprofen is actually been the most helpful of pain medications available Differential considered: Bony metastasis pain, pleural effusion, musculoskeletal pain exacerbated by cough, upper respiratory infection Exam documented above, pertinent findings include: Fatigued appearing, hypoxic at 88% at rest, 2 L of oxygen applied and saturations up to 97 with significant reduction in overall pain. Point tenderness along right anterior ribs without obvious step-off. Scattered wheeze, basilar crackles able to speak in complete sentences, abdomen is soft Lab Test results independently reviewed as above. Pertinent findings: Recent cancer testing shows CEA at 2.9, PSA at 1970, CA 19 9 is 8 PCR is positive for influenza A CBC shows pancytopenia white count is 3.6. H and H is 8.1 and 27.4 with platelets at 101 all of these numbers are lower compared to March 03 Chemistries show appropriate renal function. Alkaline phosphatase has increased from 481-550. Troponin is undetectable BNP has increased from 6472-2866 Independently reviewed EKG: AFib at a rate of 100. PVCs frequently up to triplets, no acute ischemic changes Imaging studies independently reviewed: CT scan from February is reviewed CT scan of the chest does not show pulmonary embolism, small bilateral pleural effusions CT scan of the abdomen shows large volume stool, question of metastatic lesions to the adrenal glands. Question of colon thickening prostate itself is not found to be significantly enlarged. No ureteral obstruction Both studies continued indicate widely present sclerotic bony lesions consistent with metastatic disease Consultations: Treatments: Oxygen, IV Lasix, Toradol, oral Tamiflu , morphine sulfate ER 30 mg Re-evaluations: Findings reviewed with the patient and he is agreeable to hospitalization Discussion: 74-year-old gentleman with increasing bony pain not adequately managed at his assisted living facility. New diagnosis of metastatic cancer with multiple bony lesions and February with elevated PSA found in March. Final follow up with Oncology include a scheduled PET scan on the and oncology visit on the . Patient is now testing positive for influenza a, he is increasingly hypoxic showing signs of congestive heart failure. His EKG appears to be new acute atrial fibrillation with a rate at 100, frequent PVCs/trigeminy. He is now back in the sinus rhythm with a rate in the 90s. He notes that he has had paroxysmal atrial fibrillation in the past. He has not currently anticoagulated. He is amenable to staying in the hospital given the mild hypoxia secondary to his influenza and his congestive heart failure. We will need to continue to figure out appropriate outpatient pain control for his metastatic disease. Discussed with Dr. Lou patient will be admitted Discharge Plan Departure Patient Disposition: Admitted As Inpatient Clinical Impression: Influenza A, AF (paroxysmal atrial fibrillation), Uncontrolled pain Acute CHF (congestive heart failure) Qualifiers: Heart failure type: unspecified Qualified Code(s): I50.9 - Heart failure, unspecified Metastatic cancer Qualifiers: Area of secondary neoplastic involvement: bone Qualified Code(s): C79.51 - Secondary malignant neoplasm of bone Prescriptions: No Action furosemide [Lasix] 40 mg tablet 40 mg PO DAILY Qty: 5 0RF tramadol 50 mg tablet 50 mg PO Q6H PRN (Reason: pain) Qty: 20 0RF Referrals: Daron Ulloa MD [Primary Care Provider] -
--- NOTE | 2024-04-28 13:46 | DI.RAD.S_ITS ---
PROCEDURE: XR CHEST 1V INDICATIONS: Shortness of breath TECHNIQUE: One view of the chest was acquired. COMPARISON: [facility], CR, XR CHEST 1V, 03/03/2024, 16:08. [facility], CR, XR CHEST 1V, 08/04/2021, 10:23. FINDINGS: Surgical changes and devices: None. Lungs and pleura: Hazy right basilar airspace opacity. Superimposed increased pulmonary markings. Mediastinum: Mediastinal contours appear normal. Heart size is mildly enlarged. Bones and chest wall: No suspicious bony lesions. Overlying soft tissues appear unremarkable. IMPRESSION: Hazy right basilar airspace opacity, concerning for developing infection or aspiration. Superimposed mild pulmonary edema. Dictated by: Lisandro Iglesias M.D. on 04/28/2024 at 14:21 Approved by: Lisandro Iglesias M.D. on 04/28/2024 at 14:22
--- NOTE | 2024-04-28 13:46 | EKG_ITS ---
[facility] [address] [place] [address] Test Date: 2024-04-28 Pat Name: Reji Arthur Department: Room: Gender: Male Program Director/Traffic Director: geronimo lora : 1950 Requested By: Order Number: [id number] Reading MD: Thierry Zamora MD Measurements Intervals Shock Rate: 100 P: 48 NV: 124 QRS: -21 QRSD: 92 T: 86 QT: 384 QTc: 495 Interpretive Statements Sinus rhythm with premature supraventricular complexes and with frequent premature ventricular complexes Minimal voltage criteria for LVH, may be normal variant ( Cory product ) Cannot rule out Anterior infarct , age undetermined ST & T wave abnormality, consider lateral ischemia Electronically Signed On 04-29-2024 8:42:12 PST by Thierry Zamora MD
[2024-04-28 14:01] LABS: Add Manual Diff / Slide Review NO; Basophils Absolute Auto 0 /uL (0-100); Basophils Percent Auto 0.3 % (0-2); Eosinophils Absolute Auto 0 /uL (0-450); Eosinophils Percent Auto 0.5 % (2-4); Hematocrit 24.7 % (41-53); Hemoglobin 8.1 g/dL (13.5-17.5); Lymphocytes Absolute Auto 400 /uL (1100-4500); Lymphocytes Percent Auto 9.9 % (25-40); Mean Corpuscular Hemoglobin 31.2 PG (26-34); Mean Corpuscular Volume 94.4 fL (80-100); Monocytes Absolute Auto 300 /uL (0-900); Monocytes Percent Auto 9.4 % (3-14); Neutrophils Absolute Auto 2900 /uL (1500-7000); Neutrophils Percent Auto 79.9 % (50-75); Platelet Count 101 X10^3/uL (150-400); Red Blood Cell Count 2.61 X10^6/uL (4.5-5.9); Red Cell Distribution Width 17.6 % (11.6-14.8); White Blood Cell Count 3.6 X10^3/uL (4.5-11.0)
[2024-04-28 14:12] LABS: D Dimer 1961 ng/ml (<500)
--- NOTE | 2024-04-28 14:15 | PC.NURSE ---
Pt talking and desats to 89% on RA. Pt placed on 2L per NC. Sats improved to 97%.
[2024-04-28 14:16] LABS: Lactate (Lactic Acid) 1.6 mmol/L (0.7-2.1)
[2024-04-28 14:17] LABS: Alanine Aminotransferase 14 IU/L (<50); Albumin 3.8 g/dL (3.5-5.0); Albumin Globulin Ratio 1.2 (1.0-2.8); Alkaline Phosphatase 550 U/L (38-126); Aspartate Aminotransferase 23 IU/L (17-59); BUN Creatinine Ratio 20.5 (6-22); Bilirubin Total 0.5 mg/dL (0.2-1.3); Blood Urea Nitrogen 16 mg/dL (9-20); Calcium 8.3 mg/dL (8.4-10.2); Carbon Dioxide 24 mmol/L (22-32); Chloride 98 mmol/L (98-107); Estimated Glomerular Filt Rate > 60 mL/min (>60); Globulin 3.2 g/dL (1.7-4.1); Glucose 125 mg/dL (80-110); HEMOLYSIS < 15 (0-50); INR 2.2 (0.9-1.3); Potassium 4.3 mmol/L (3.4-5.1); Sodium 133 mmol/L (137-145)
[2024-04-28 14:29] LABS: NT-proBNP (BNP-Adult 18+) 3060 pg/mL (<125); Troponin I 0.034 ng/mL (0.01-0.034)
[2024-04-28] MEDS: KETOROLAC 30 MG/ML VIAL 15 MG IV (14:38)
--- NOTE | 2024-04-28 14:42 | PC.NURSE ---
Discussed plan of care with pt. Katrin. Appears in NAD
[2024-04-28 15:15] LABS: Adenovirus Not Detected (Not Detect); B. parapertussis Not Detected (Not Detecte); Bordetella pertussis Not Detected (Not Detect); Chlamydophila pneumoniae Not Detected (Not Detect); Coronavirus 229E Not Detected (Not Detect); Coronavirus HKU1 Not Detected (Not Detect); Coronavirus NL 63 Not Detected (Not Detect); Coronavirus OC43 Not Detected (Not Detect); Human Metapneumovirus Not Detected (Not Detect); Human Rhinovirus/Enterovirus Not Detected (Not Detect); Influenza A H1-2009 Detected (Not Detect); Influenza B Not Detected (Not Detect); Mycoplasma pneumoniae Not Detected (Not Detect); Parainfluenza Virus 1 Not Detected (Not Detect); Parainfluenza Virus 2 Not Detected (Not Detect); Parainfluenza Virus 3 Not Detected (Not Detect); Parainfluenza Virus 4 Not Detected (Not Detect); Respiratory Syncytial Virus Not Detected (Not Detect); SARS- CoV-2 Not Detected (Not Detecte)
--- NOTE | 2024-04-28 15:25 | DI.CT.S_ITS ---
PROCEDURE: CT ABDOMEN PELVIS W CON INDICATIONS: new dx metastatic prostate cancer, TECHNIQUE: After the administration of intravenous contrast, axial sections acquired from the lung bases to the pubic symphysis. Coronal and sagittal reformats were performed. For radiation dose reduction, the following was used: automated exposure control, adjustment of mA and/or kV according to patient size. COMPARISON: [facility], CT, CT ANGIO CHEST, 03/23/2024, 10:56. FINDINGS: Image quality: Diagnostic. Lower Chest: See CTA chest April 28, 2024. . ABDOMEN: Liver: No solid mass. Mild, diffuse fatty infiltration of the liver. Gallbladder: Gallbladder is distended without gallbladder wall thickening or gallstones. Biliary ducts: No biliary dilation. Pancreas: No ductal dilation. Spleen: Size is within normal limits. Adrenal Glands: 4.1 by 2.6 right adrenal mass and 3.3 x 1.9 centimeter left adrenal mass are without significant change compared to prior study. Kidneys and Ureters: No hydronephrosis bilateral nonobstructing renal stones ranging in size from 1-4 millimeters.. No solid mass. Simple left renal cyst which requires no additional imaging. No complex renal cystic lesion which requires follow up. Stomach and Bowel: Normal colonic caliber, without significant wall thickening. Moderate to large volume of stool throughout the colon and in the rectum. Circumferential wall thickening involving the distal rectum. No evidence of appendicitis. Peritoneum: No abnormal intraperitoneal fluid. No free air. Ventral Wall: No significant ventral hernia. Abdominal Nodes: No retroperitoneal or mesenteric adenopathy by size criteria. Vessels: Aorta and inferior vena cava are normal in size. Scattered atherosclerotic calcifications involving the abdominal and pelvic vasculature. PELVIS: Pelvic Organs: Unremarkable. Bladder: No bladder wall thickening, accounting for underdistention. Prostate is mildly enlarged. Pelvic Nodes: No enlarged lymph nodes. Miscellaneous: No inguinal hernias are seen. Bones: Numerous sclerotic and lesions extensive throughout the visualized bony skeleton compatible with osseous metastatic disease. IMPRESSION: Mild circumferential wall thickening involving the lower rectum which could be due to underdistention, mild nonspecific proctitis or rectal carcinoma. Recommend correlation with clinical findings. Moderate to severe colonic and proximal rectal fecal loading. Stable bilateral adrenal masses suspicious for metastatic disease. Extensive osseous metastatic disease. Bilateral nonobstructing renal stones. No hydronephrosis. Dictated by: Pauline Kwon MD, PhD on 04/28/2024 at 15:48 Approved by: Pauline Kwon MD, PhD on 04/28/2024 at 15:57
--- NOTE | 2024-04-28 15:25 | DI.CT.S_ITS ---
PROCEDURE: CT ANGIO CHEST PE PROTOCOL INDICATIONS: elevated d dimer TECHNIQUE: After the administration of intravenous contrast, 2 mm thick sections acquired from the pulmonary apices to the posterior costophrenic angles. 3-dimensional maximum intensity projection (MIP) coronal and sagittal reformats were then acquired through the thorax. For radiation dose reduction, the following was used: automated exposure control, adjustment of mA and/or kV according to patient size. COMPARISON: [facility], CT, CT ANGIO CHEST PE PROTOCOL, 03/03/2024, 18:23. FINDINGS: Image quality: Diagnostic. Pulmonary arteries: Pulmonary arteries are normal in size, and demonstrate no intraluminal filling defects to suggest central pulmonary embolism. Lower Neck: No enlarged lymph nodes. Thyroid: No thyroid nodules which require sonographic follow up, per consensus guidelines. Axillae: No enlarged lymph nodes. Chest Wall: Unremarkable. Bones: Unremarkable. Lungs and Pleura: There is small right pleural effusion and trace left pleural effusion with adjacent compressive atelectasis in posterior aspect of bilateral lung farley. Ill-defined airspace opacities are noted in anterior and lateral aspect of right lower lobe along the major fissure extending to right infrahilar region. Small atelectasis in anterior and medial aspect of left lingular segment is also seen. No pneumothorax. Heart: Heart size is enlarged. No pericardial effusion. Thoracic Vessels: No aortic aneurysm. Moderate atherosclerotic calcifications are noted in all 3 coronary arteries. Mediastinum and Marilyn: No enlarged lymph nodes. Esophagus: No wall thickening. Small hiatal hernia. Upper Abdomen: Please correlate with CT of abdomen and pelvis study from the same day. IMPRESSION: 1. No pulmonary embolus. No thoracic aortic aneurysm. 2. Cardiomegaly, no pericardial effusion. No gross mediastinal or hilar lymphadenopathy. Moderate three-vessel coronary artery atherosclerotic calcifications. Small hiatal hernia. 3. Small right pleural effusion and trace left pleural effusion with adjacent bibasilar dependent atelectasis. Small infiltrate versus atelectasis is seen in anterior and lateral aspect of right lower lobe. Small infiltrate versus atelectasis in anterior medial aspect of left lingular segment. No pneumothorax. Dictated by: Michael Villanueva M.D. on 04/28/2024 at 15:48 Approved by: Michael Villanueva M.D. on 04/28/2024 at 15:56
[2024-04-28] MEDS: MORPHINE ER 15 MG TABLET 30 MG PO ×2 (18:08→22:42)
[2024-04-28] MEDS: FUROSEMIDE 40 MG/4 ML VIAL IV ×2 (18:09→23:44)
[2024-04-28] MEDS: OSELTAMIVIR 75 MG CAPSULE PO (18:24)
--- NOTE | 2024-04-28 18:38 | PM.HP.1 ---
History of Present Illness History of Present Illness Date Patient Seen: 04/28/24 Time Patient Seen: 18:39 Chief complaint: increased pain Narrative: The patient was a 74-year-old male with a history of chronic atrial fibrillation on anticoagulation, hypertension, and hyperlipidemia. He was currently being evaluated for metastatic cancer of unclear etiology. Initially there were concerns for multiple myeloma which his mother had. Recently, however his PSA was found to be elevated making metastatic prostate cancer much more likely. He has been treated for rib cage pain with a combination of long-acting morphine and oxycodone. He was using MiraLax daily to prevent constipation. He stays at [facility], where there was an outbreak of upper respiratory illness. He has been ill for several days with URI symptoms including rhinorrhea, and a cough. The cough is largely unproductive, he was not been particularly dyspneic. He presented today because of cough and rib pain. The patient was found to be hypoxemic with SpO2 of 88% on room air and is comfortable on 2 L of oxygen. He does have a history of heart failure and has noted pedal edema and leg edema which have been progressive for the past several days despite taking his Lasix at home. He denies any chest pain. ED course: He was found to be positive for influenza by PCR and started on Tamiflu. He has evidence of metastatic prostate cancer by PSA and imaging, this is still being evaluated by Oncology. Dr. Murray is his oncologist at [facility]. The patient also had evidence of pulmonary edema and has a history of pulmonary edema and leg edema. [facility] Medical History Coronary artery disease Congestive heart failure Prostate cancer metastatic to bone Paroxysmal atrial fibrillation Social History Smoking Status: Current every day smoker Meds Home Medications and Allergies Home Medications Medication Instructions Recorded Confirmed Type furosemide 40 mg tablet (Lasix) 40 mg PO DAILY #5 tabs 08/04/21 Rx tramadol 50 mg tablet 50 mg PO Q6H PRN pain #20 tabs 03/03/24 Rx Allergies Allergy/AdvReac Type Severity Reaction Status Date / Time No Known Drug Allergies Allergy Verified 08/04/21 11:43 Review of Systems Review of Systems Narrative: All else reviewed and otherwise unremarkable except as noted in the history and physical. Exam Vital Signs (past 8 hours): - 04/28/24 13:41 04/28/24 13:42 04/28/24 13:42 Temperature Pulse Rate 110 H 108 H Respiratory Rate Blood Pressure 139/67 Pulse Oximetry 89 L 90 L Oxygen Delivery Method Oxygen Flow Rate 04/28/24 13:43 04/28/24 14:00 04/28/24 14:00 Temperature 98.7 F Pulse Rate 98 H 103 H Respiratory Rate 20 26 H Blood Pressure 139/67 154/85 H Pulse Oximetry 89 L 97 Oxygen Delivery Method Room Air Room Air Oxygen Flow Rate 04/28/24 14:31 04/28/24 15:00 04/28/24 15:57 Temperature Pulse Rate 89 74 67 Respiratory Rate 26 H 20 23 Blood Pressure 142/60 H 129/61 127/58 L Pulse Oximetry 98 98 99 Oxygen Delivery Method Nasal Cannula Oxygen Flow Rate 2 04/28/24 16:00 04/28/24 16:00 04/28/24 16:30 Temperature Pulse Rate 65 Respiratory Rate 19 Blood Pressure 127/64 117/56 L Pulse Oximetry 98 Oxygen Delivery Method Oxygen Flow Rate 04/28/24 16:30 04/28/24 17:00 04/28/24 17:00 Temperature Pulse Rate 63 63 Respiratory Rate 18 23 Blood Pressure 109/56 L Pulse Oximetry 98 99 Oxygen Delivery Method Nasal Cannula Oxygen Flow Rate 2 Oxygen Delivery Method Nasal Cannula Oxygen Flow Rate 2 Narrative Exam Narrative: NAD, alert and oriented, fluent speech, calm. He was comfortable on 2 L of oxygen N/C. Normocephalic skull, EOMI, anicteric sclera, symmetric pupils. Oropharynx unremarkable, no droop. Neck supple, midline trachea, no adenopathy. Lungs clear, normal rate and effort. Heart regular, no murmur gallop or rub. (ECG=NSR today) Abdomen is soft, non distended and non tender. Extremities are notable for 2+ edema bilaterally. Skin is free of rash or lesions. Joints are not swollen or deformed. Judgment appears to be normal. Objective ECG Impression: Normal sinus rhythm Low voltage QRS Cannot rule out Anterior infarct , age undetermined T wave abnormality, consider lateral ischemia Imaging Multiple studies:: Radiologist's impression: Chest CTA: . No pulmonary embolus. No thoracic aortic aneurysm. 2. Cardiomegaly, no pericardial effusion. No gross mediastinal or hilar lymphadenopathy. Moderate three-vessel coronary artery atherosclerotic calcifications. Small hiatal hernia. 3. Small right pleural effusion and trace left pleural effusion with adjacent bibasilar dependent atelectasis. Small infiltrate versus atelectasis is seen in anterior and lateral aspect of right lower lobe. Small infiltrate versus atelectasis in anterior medial aspect of left lingular segment. No pneumothorax. Abdomen pelvis CT: Mild circumferential wall thickening involving the lower rectum which could be due to underdistention, mild nonspecific proctitis or rectal carcinoma. Recommend correlation with clinical findings. Moderate to severe colonic and proximal rectal fecal loading. Stable bilateral adrenal masses suspicious for metastatic disease. Extensive osseous metastatic disease. Bilateral nonobstructing renal stones. No hydronephrosis. Chest x-ray: Hazy right basilar airspace opacity, concerning for developing infection or aspiration. Superimposed mild pulmonary edema. Labs 04/28/24 13:50 04/28/24 13:50 Labs: Laboratory Results - last 24 hr 04/28/24 13:50 WBC 3.6 L RBC 2.61 L Hgb 8.1 L Hct 24.7 L MCV 94.4 MCH 31.2 MCHC 33.0 RDW 17.6 H Plt Count 101 L Neut % (Auto) 79.9 H Lymph % (Auto) 9.9 L [place] % (Auto) 9.4 Eos % (Auto) 0.5 L Baso % (Auto) 0.3 Neut # (Auto) 2900 Lymph # (Auto) 400 L [place] # (Auto) 300 Eos # (Auto) 0 Baso # (Auto) 0 PT 24.0 H INR 2.2 H D-Dimer 1961 H Sodium 133 L Potassium 4.3 Chloride 98 Carbon Dioxide 24 BUN 16 Creatinine 0.78 Estimated GFR > 60 BUN/Creatinine Ratio 20.5 Glucose 125 H Lactate 1.6 Calcium 8.3 L Total Bilirubin 0.5 AST 23 ALT 14 Alkaline Phosphatase 550 H Troponin I 0.034 NT-Pro-B Natriuret Pep 3060 H Total Protein 7.0 Albumin 3.8 Globulin 3.2 Albumin/Globulin Ratio 1.2 Chlamy pneumoniae PCR Not detected Adenovirus (PCR) Not detected B. pertussis DNA (PCR) Not detected B.parapertussis DNA PCR Not detected Coronavirus OC43 (PCR) Not detected Coronavirus HKU1 (PCR) Not detected Coronavirus 229E (PCR) Not detected SARS-CoV-2 (PCR) Not detected Coronavirus NL63 (PCR) Not detected Human Metapneumovir PCR Not detected Influ A (H1N1 Seas) PCR Detected H Influenza Type B (PCR) Not detected M. pneumoniae (PCR) Not detected Parainfluenza 1 (PCR) Not detected Parainfluenza 2 (PCR) Not detected Parainfluenza 3 (PCR) Not detected Parainfluenza 4 (PCR) Not detected RSV (PCR) Not detected Entero/Rhino (PCR) Not detected Assessment & Plan Assessment & Plan narrative: 1. Acute hypoxic respiratory failure, present on admission and active. 2. Influenza a, present on admission and active. 3. Acute heart failure with echo data not available, unclear type. Present on admission and active. 4. Probable metastatic prostate cancer based on elevated PSA and skeletal lesions on imaging, present on admission and active. Plan: -patient shares that he is DNR tonight. -we will diurese with Lasix 40 IV q.12 and wean oxygen as able. -Tamiflu will continue, this was started in the ED. -we will use oxycodone as needed, and IV hydromorphone until we get his home medications reconciled and then we will look at what adjustments may make sense for him moving forward. Anticipate at least 2 midnights of hospital care, this supports inpatient status. Time-Based Coding :: 35 min spent with patient and on the chart (including review of chart, obtaining history, exam, reviewing outside data, placing orders, documenting exam and treatment plan, and counseling patient) on 04/28. Quality MIPS - Admit The patient?s Advance Care plan is not present because I confirmed today that the patient does not wish or was not able to name a surrogate decision maker or provide an Advance Care Plan.: Yes MIPS - Meds 'Current medications' to include all prescriptions, [id number]-hugvirl products, herbals, cannabis/cannabidiol products, and vitamin/mineral/dietary (nutritional) supplements. I have utilized all available resources to obtain, update, or review the patient?s current medications. [If Yes, STOP here]: Yes
[2024-04-28 19:36] LABS: Troponin I 0.049 ng/mL (0.01-0.034)
[2024-04-28] MEDS: SENNOSIDES 8.6 MG TABLET 17.2 MG PO (20:13)
[2024-04-28] MEDS: HEPARIN 5,000 UNIT/ML VIAL 5000 UNIT SUBCUT (20:14)
[2024-04-29] VITALS: BP 140/62; PULSE 80; RESP 18; TEMP 36.4; O2SAT 99
[2024-04-29 03:11] VITALS: O2SAT 99
[2024-04-29 04:16] VITALS: BP 126/60; PULSE 76; RESP 18; TEMP 36.7; O2SAT 98
--- NOTE | 2024-04-29 05:57 | PC.NURSE ---
NOC Shift Note: Patient alert and oriented and able to make needs known to staff. No complaints of N/V. Patient reported felling paranoid and anxious after scheduled dose of MS Contin at bedtime. DIscussed with patient his worries and wants. Next scheduled MS Contin dose is at 0600. Per patient request at 0600 this RN will check in on him... if patient is sleeping let him sleep. If awake he will let me know if he needs the MS Contin dose at that time. Patients states he would really like to wait to take untill able to discuss options with doctor.
[2024-04-29 06:15] LABS: Add Manual Diff / Slide Review NO; Basophils Absolute Auto 0 /uL (0-100); Basophils Percent Auto 0.2 % (0-2); Eosinophils Absolute Auto 0 /uL (0-450); Hematocrit 24.1 % (41-53); Hemoglobin 7.9 g/dL (13.5-17.5); Lymphocytes Absolute Auto 400 /uL (1100-4500); Lymphocytes Percent Auto 11.8 % (25-40); Mean Corpuscular HGB Conc 32.9 % (30-36); Mean Corpuscular Hemoglobin 30.7 PG (26-34); Mean Corpuscular Volume 93.3 fL (80-100); Monocytes Absolute Auto 300 /uL (0-900); Monocytes Percent Auto 9.8 % (3-14); Neutrophils Absolute Auto 2500 /uL (1500-7000); Neutrophils Percent Auto 77.2 % (50-75); Platelet Count 92 X10^3/uL (150-400); Red Blood Cell Count 2.58 X10^6/uL (4.5-5.9); Red Cell Distribution Width 18.1 % (11.6-14.8); White Blood Cell Count 3.3 X10^3/uL (4.5-11.0)
[2024-04-29] MEDS: MORPHINE ER 15 MG TABLET 30 MG PO ×2 (06:16→13:26)
[2024-04-29 06:29] LABS: BUN Creatinine Ratio 22.9 (6-22); Blood Urea Nitrogen 19 mg/dL (9-20); Calcium 8.1 mg/dL (8.4-10.2); Carbon Dioxide 31 mmol/L (22-32); Chloride 95 mmol/L (98-107); Estimated Glomerular Filt Rate > 60 mL/min (>60); Glucose 107 mg/dL (80-110); HEMOLYSIS < 15 (0-50); Sodium 134 mmol/L (137-145)
[2024-04-29 08:00] VITALS: BP 129/48; PULSE 60; RESP 19; TEMP 35.9; O2SAT 99
[2024-04-29 08:57] LABS: Troponin I 0.041 ng/mL (0.01-0.034)
[2024-04-29] MEDS: HEPARIN 5,000 UNIT/ML VIAL 5000 UNIT SUBCUT (09:05)
[2024-04-29] MEDS: OSELTAMIVIR 75 MG CAPSULE PO (09:05)
--- NOTE | 2024-04-29 11:04 | PM.DS.1 ---
History of Present Illness History of Present Illness Date Patient Seen: 04/29/24 Time Patient Seen: 11:05 Chief complaint: increased pain Narrative: Per admitting provider, The patient was a 74-year-old male with a history of chronic atrial fibrillation on anticoagulation, hypertension, and hyperlipidemia. He was currently being evaluated for metastatic cancer of unclear etiology. Initially there were concerns for multiple myeloma which his mother had. Recently, however his PSA was found to be elevated making metastatic prostate cancer much more likely. He has been treated for rib cage pain with a combination of long-acting morphine and oxycodone. He was using MiraLax daily to prevent constipation. He stays at [facility], where there was an outbreak of upper respiratory illness. He has been ill for several days with URI symptoms including rhinorrhea, and a cough. The cough is largely unproductive, he was not been particularly dyspneic. He presented today because of cough and rib pain. The patient was found to be hypoxemic with SpO2 of 88% on room air and is comfortable on 2 L of oxygen. He does have a history of heart failure and has noted pedal edema and leg edema which have been progressive for the past several days despite taking his Lasix at home. He denies any chest pain. ED course: He was found to be positive for influenza by PCR and started on Tamiflu. He has evidence of metastatic prostate cancer by PSA and imaging, this is still being evaluated by Oncology. Dr. Murray is his oncologist at [facility]. The patient also had evidence of pulmonary edema and has a history of pulmonary edema and leg edema. Discharge Providers Provider Date of admission: 04/28/24 18:04 Discharge Date: 04/29/24 Primary care physician: Daron Ulloa MD Discharge provider: Miguel Oneal DO Summary Hospital Course Discharge Diagnosis: 1. Acute hypoxic respiratory failure, present on admission and active. 2. Influenza a, present on admission and active. 3. Acute systolic heart failure. Present on admission and active. 4. Probable metastatic prostate cancer based on elevated PSA and skeletal lesions on imaging, present on admission and active. Hospital Course: This is a 74 year old male with PMH of chronic anemia, chronic afib/flutter with prior cardioversion, HTN, HLD, CAD s/p ENOCH in 04/2022 @ , PAD, COPD with emphysema, hx of prior C. diff, BPH, ischemic cardiomyopathy with EF of approx 25% per cardiology documentation, and metastatic cancer of currently unknown primary but presumed prostate based on elevated PSA levels who was admitted with shortness of breath and acute respiratory failure with hypoxia. I reviewed his outpatient documentation extensively today to create the above history, as much of his care is from providers on [facility] with CareEverywhere reviewed today. He tested positive for influenza A and also appeared slightly volume overloaded on admission. After a day of diuresis, and the addition of tamiflu, he felt much improved. He was no longer hypoxic and was able to ambulate maintaining o2 saturations in the mid 90s on room air. He was ambulating unassisted with me in the room. He also complained of severe pain from his ongoing malignancy which was improved with an increase in his morphine to TID instead of BID and an increased frequency of oxycododone as well. He states the motrin he takes is quite effective. We discussed the risks of this along with his coumadin and his current anemia with a Hg of near 8. He would like to continue motrin, and I will add a PPI for now. Recommend continued Hg monitoring with primary care and oncology, he already was recommended for outpatient GI consultation for colonoscopy, and would consider EGD as well. The patient denied melena or BRBPR or hematemesis, and h/h was stable here but recommend outpatient GI consultation as soon as feasible. He was discharged back to his assisted living given symptom improvement and resolution of his hypoxia. He would also benefit from ensure drinks at assisted living and a deep submergence vehicle operator if available. Time Spent with Patient Time spent: Greater than 30 minutes Exam Vital Signs (past 8 hours): - 04/29/24 03:11 04/29/24 04:16 04/29/24 08:00 Temperature 98.0 F 96.7 F L Pulse Rate 76 60 Respiratory Rate 18 19 Blood Pressure 126/60 129/48 L Pulse Oximetry 99 98 99 Oxygen Delivery Method Nasal Cannula Oxygen Flow Rate 2 2 3 04/29/24 08:00 Temperature Pulse Rate Respiratory Rate Blood Pressure Pulse Oximetry Oxygen Delivery Method Nasal Cannula Oxygen Flow Rate Fraction of Inspired Oxygen 32 SaO2/FiO2 Ratio 306 Oxygen Delivery Method Nasal Cannula Oxygen Flow Rate 3 Narrative Exam Narrative: NAD, alert and oriented, fluent speech, calm. He was comfortable on room air today. Normocephalic skull, EOMI, anicteric sclera, symmetric pupils. Oropharynx unremarkable, no droop. Neck supple, midline trachea, no adenopathy. Lungs clear, normal rate and effort. Heart irregularly irregular with normal rate. Abdomen is soft, non distended and non tender. Extremities are without edema Skin is free of rash or lesions. Joints are not swollen or deformed. Judgment appears to be normal. Objective Labs 04/29/24 05:07 04/29/24 05:07 Labs: Laboratory Results - last 24 hr 04/28/24 04/28/24 04/29/24 13:50 18:59 05:07 WBC 3.6 L 3.3 L RBC 2.61 L 2.58 L Hgb 8.1 L 7.9 L Hct 24.7 L 24.1 L MCV 94.4 93.3 MCH 31.2 30.7 MCHC 33.0 32.9 RDW 17.6 H 18.1 H Plt Count 101 L 92 L Neut % (Auto) 79.9 H 77.2 H Lymph % (Auto) 9.9 L 11.8 L [place] % (Auto) 9.4 9.8 Eos % (Auto) 0.5 L 1.0 L Baso % (Auto) 0.3 0.2 Neut # (Auto) 2900 2500 Lymph # (Auto) 400 L 400 L [place] # (Auto) 300 300 Eos # (Auto) 0 0 Baso # (Auto) 0 0 PT 24.0 H INR 2.2 H D-Dimer 1961 H Sodium 133 L 134 L Potassium 4.3 4.0 Chloride 98 95 L Carbon Dioxide 24 31 BUN 16 19 Creatinine 0.78 0.83 Estimated GFR > 60 > 60 BUN/Creatinine Ratio 20.5 22.9 H Glucose 125 H 107 Lactate 1.6 Calcium 8.3 L 8.1 L Total Bilirubin 0.5 AST 23 ALT 14 Alkaline Phosphatase 550 H Troponin I 0.034 0.049 H 0.041 H NT-Pro-B Natriuret Pep 3060 H Total Protein 7.0 Albumin 3.8 Globulin 3.2 Albumin/Globulin Ratio 1.2 Chlamy pneumoniae PCR Not detected Adenovirus (PCR) Not detected B. pertussis DNA (PCR) Not detected B.parapertussis DNA PCR Not detected Coronavirus OC43 (PCR) Not detected Coronavirus HKU1 (PCR) Not detected Coronavirus 229E (PCR) Not detected SARS-CoV-2 (PCR) Not detected Coronavirus NL63 (PCR) Not detected Human Metapneumovir PCR Not detected Influ A (H1N1 Seas) PCR Detected H Influenza Type B (PCR) Not detected M. pneumoniae (PCR) Not detected Parainfluenza 1 (PCR) Not detected Parainfluenza 2 (PCR) Not detected Parainfluenza 3 (PCR) Not detected Parainfluenza 4 (PCR) Not detected RSV (PCR) Not detected Entero/Rhino (PCR) Not detected [facility] Medical History Coronary artery disease Congestive heart failure Prostate cancer metastatic to bone Paroxysmal atrial fibrillation Social History household members: none Smoking Status: Current every day smoker alcohol intake: current Discharge Plan Discharge Plan Patient Disposition: Assisted Living Transfer to: [facility] Provider Discharge Comment: 74 M admitted with shortness of breath and acute respiratory failure. Found to have influenza A, also treated for heart failure exacerbation. Now improved. For ongoing cancer related pain increased home morphine and oxycodone frequencies. Also added PPI given anemia and his continued ibuprofen use with warfarin. He already has recommendations for outpatient GI evaluation with colonoscopy per oncology notes. Discharge orders & Medications Discharge Orders: Discharge (Order); Ordered 04/29/24 Ordered By: Miguel Oneal Prescriptions: New sennosides [senna] 8.6 mg Tablet 17.2 mg PO BEDTIME 7 Days Qty: 14 0RF oseltamivir [Tamiflu] 75 mg Capsule 75 mg PO BID 4 Days Qty: 8 0RF pantoprazole 40 mg tablet,delayed release (DR/EC) 40 mg PO DAILY 30 Days Qty: 30 0RF Continued clopidogrel 75 mg tablet 75 mg PO DAILY famotidine 20 mg tablet 20 mg PO BID losartan 25 mg tablet 25 mg PO DAILY ibuprofen 400 mg tablet 400 mg PO 3XD folic acid 1 mg tablet 1 mg PO DAILY eplerenone 25 mg tablet 25 mg PO DAILY Eliquis 5 mg tablet 5 mg PO BID Jardiance 10 mg tablet 10 mg PO DAILY magnesium hydroxide [Milk of Magnesia] 400 mg/5 mL suspension 15 ml PO DAILY PRN (Reason: Constipation) tamsulosin 0.4 mg capsule 0.4 mg PO DAILY metoprolol succinate 25 mg tablet extended release 24 hr 25 mg PO BID polyethylene glycol 3350 17 gram/dose powder 17 g PO DAILY rosuvastatin 10 mg tablet 10 mg PO ONCE PM Changed morphine 30 mg tablet extended release 30 mg PO TID 30 Days Qty: 90 0RF oxycodone 15 mg tablet 15 mg PO Q4H PRN (Reason: Pain (Scale Score 7-10)) 7 Days Qty: 30 0RF Follow up/Referrals: Daron Ulloa MD [Primary Care Provider] - Discharge Health Status Precautions: [place] Diet/Activity/Treatments Diet: Diet as Tolerated and Low-sodium Liquid consistency: Normal/Thin Food texture: Regular Activity: As tolerated, no restrictions Special Rehabilitation Services Restrictions to mobility: None Visit Report/Discharge Packet Stand Alone Forms: Patient Portal/API, Stroke Signs & Symptoms Discharge Data Primary Care Provider: Daron Ulloa Quality VTE Deep Vein Thrombosis/Pulmonary Embolism Present on Admission: No
[2024-04-29 11:28] VITALS: O2SAT 92
[2024-04-29] MEDS: FUROSEMIDE 40 MG/4 ML VIAL IV (11:57)
[2024-04-29 12:00] VITALS: BP 121/49; PULSE 66; RESP 18; TEMP 36.6; O2SAT 93
--- NOTE | 2024-04-29 14:52 | CM.DANOTE ---
Initial DCP Assessment Note Pt is a 74 yo male, resident at [facility] . Found to be Flu A+, PMH includes rib pain likely related to newly diagnosed metastatic prostate cancer- patient being seen by [facility]. Patient's sx improved quickly and at time of discharge patient was ambulating and off oxygen. Patient eager to return to [place]. PCP: [place] Payer: [facility] MCR/[facility] Placed call to Bridger at [facility] P [phone]; updated with discharge. Patient welcomed for return today, facility van scheduled to pick patient up at 1530. Faxed Bridger the signed med list via [employer] F [phone]. Meds have been sent to [facility] per Bridger's request. Plan: Discharge back to [facility] via facility van. Coordination completed with Bridger at [place]. SIOBHAN Shields Discharge Planning/Care Management CM Discharge Assessment Start: 04/29/24 14:49 Freq: Status: Active Protocol: Document 04/29/24 14:50 MAGDA (Rec: 04/29/24 14:52 MAGDA [id number]) Discharge Planning Assessment Assigned Guidance Counselor SIOBHAN Watson DPOA/Assigned Designee Name None provided Advance Directives? No History Provided By Patient,Medical Record Prior Living Arrangements Assisted Living Household Members none Type of transporation used prior to Relies on Others admit Facility Name Admitted From: [facility] Willing to Return to Facility? Yes Independent with ADL's Yes Is patient alert and oriented? Yes Needs Assistance With Meal Prep,Managing Medications ,Home Chores / Shopping Discharge Plan Assisted Living Facility Transportation Arrangement Facility van Referrals Initiated None needed
--- NOTE | 2024-04-29 16:27 | PC.NURSE ---
Day shift: Discharge instructions gone over with patient. Patient stated understanding, all questions answered. PIV and tele removed prior to discharge. All belongings with patient, including envelope with medication list for assisted living staff. [place] staff arrived to peanut picker patient at 1625 and escorted patient to exit via wheelchair.
== END 2024-04-29 16:29 | DRG 193 ==
LOC: ED 18:04 → AC 18:05
PROVIDERS: Hospitalist; Admitting Provider Family Medicine; Emergency Provider Emergency Medicine; PCP Orthopaedic Surgery; Referring Provider Emergency Medicine; Visit Provider Family Medicine
DX: J10.1 Influenza due to other identified influenza virus with other respiratory manifestations (principal); I50.21 Acute systolic (congestive) heart failure; J96.01 Acute respiratory failure with hypoxia; I42.9 Cardiomyopathy, unspecified; C79.51 Secondary malignant neoplasm of bone; I11.0 Hypertensive heart disease with heart failure; E78.5 Hyperlipidemia, unspecified; F17.200 Nicotine dependence, unspecified, uncomplicated; C61 Malignant neoplasm of prostate; I25.10 Atherosclerotic heart disease of native coronary artery without angina pectoris; K59.00 Constipation, unspecified; I73.9 Peripheral vascular disease, unspecified; D63.0 Anemia in neoplastic disease; I48.0 Paroxysmal atrial fibrillation; Z79.02 Long term (current) use of antithrombotics/antiplatelets; Z79.01 Long term (current) use of anticoagulants; Z66 Do not resuscitate; Z95.5 Presence of coronary angioplasty implant and graft
CPT/HCPCS: 36415; 71045; 71275; 74177; 80048; 80053; 83605; 83880; 84484; 85025; 85379; 85610; 87633; 93005; 96374; 96375; 99285; J1644; J1885; J1940